=== PATIENT | female | born 1960 | race Caucasian/White ===

== ENCOUNTER 2018-08-04 13:20 | Outpatient (CLI) | payer MEDICARE ==
--- NOTE | 2018-08-04 14:43 | CT ---
[facility] lumbar spine noncontrast: 07/27/2018 HISTORY: 58-year-old female with lumbar radiculopathy, and fracture of unspecified parts of lumbosacral spine and pelvis, initially, for closed fracture. COMPARISON: None FINDINGS: There are 5 lumbar-type vertebrae. Vertebral body heights are maintained. There are unilateral left p edicle screws at L4, L5, and S1, with vertical interlocking ludy. There are tiny metallic markers for interbody cages at the left sides of the L4-5 and L5-S1 disc spaces. There are 3 transversely oriente d screws across the left SI joint. The left L5 inferior articular facet is surgically absent. The lef t L4 inferior articular facet is at least partially absent. No definitive evidence of hardware loosen ing. T12-L1: Small far lateral focal disc herniation into lateral prevertebral space. No central or neural foraminal stenosis. No high-grade disc space narrowing. L1-2: Mild diffuse disc bulge. Mild central spinal canal stenosis. Mild bilateral neural foraminal st enosis. No high-grade disc space narrowing. L2-3: Disc spaces maintained. Mild disc bulge. Mild ligamentum flavum thickening. No high-grade facet DJD. Mild bilateral neural foraminal stenosis. Mild to moderate central spinal canal stenosis. L3-4: No high-grade disc space narrowing. Diffuse disc bulge. Moderate ligamentum flavum thickening. Left facet vacuum joint phenomenon, but otherwise no high-grade facet DJD. Mild to moderate right cami ral foraminal stenosis. Moderate left neural foraminal stenosis due to left lateral and far lateral a symmetric portion of disc bulge.. Moderate central spinal canal stenosis. L4-5: Minimal grade 1 anterolisthesis of L4 on L5. Diffuse disc bulge. Moderate right neural foramina l stenosis. Mild left neural foraminal stenosis. Mild to moderate disc space narrowing. No bony bridg es across the disc space between the endplates. L5-S1: Left hemilaminotomy along with the facetectomy. Diffuse disc bulge. Moderate right neural fora yohana stenosis. No left neural foraminal stenosis. Mild central stenosis. Moderate disc space narrowi ng. Vacuum disc phenomenon. No bony bridges across the disc space between the endplates. IMPRESSION: 1.) Status post unilateral left pedicle screw placement and interbody cage placement at L4-L5-S1. 2) moderate central spinal canal stenosis at L4-5 and mild to moderate central spinal canal stenosis at L3-4. 3) neural foraminal stenosis at several levels. 4) status post arthrodesis procedure of left sacroiliac joint with screws.
--- NOTE | 2018-08-04 15:13 | CT ---
CT PELVIS WITHOUT CONTRAST: Date: 08/04/18 HISTORY: Pelvic and lumbar fracture. COMPARISON: None. FINDINGS: Visualized alimentary canal and pelvic structures are grossly unremarkable. Uterus is surgically abse nt. Unremarkable urinary bladder. Please refer to separate lumbar spine CT report for further details. There is evidence of unilateral left-sided transpedicular screw at L4, L5, and S1. There is associated disc prosthesis at L4-L5 and L 5-S1. With regards to the visualized transpedicular screws, no obvious perihardware lucency at L4 and L5. However, there does appear to be mild perihardware lucency involving the screw at S1. Limited evaluation of the contents of the central spinal canal and neural foramina. Visualized bony pelvis appears to be intact. There are three screws traversing the left sacroiliac tawana int. No evidence of perihardware lucency. The left SI joint is still patent. Both obturator rings and visualized femoral heads are unremarkable. Sacral ala are preserved. IMPRESSION: 1. Fusion changes as described above. There is mild perihardware lucency involving the left S1 trans pedicular screw, correlate for loosening. 2. No acute fractures. POS: [facility]
--- NOTE | 2018-08-04 15:40 | MRI ---
LUMBAR SPINE MRI WITHOUT AND WITH CONTRAST: Date: 08/04/18 HISTORY: Previous fracture. Fusion. Pain. Recent previous surgery. FINDINGS: There is appropriate T1 marrow signal intensity of the lumbar vertebra. Lumbar spine vertebral body h eight is maintained. No fracture. Limited evaluation of the bone marrow signal intensity at L4, L5, a nd S1 due to left-sided transpedicular screw, as well as fusion hardware along the left SI joint. The re is no abnormal enhancement on the postcontrast images, with respect to the vertebral bodies. Addit ionally, there is no abnormal enhancement with regards to the contents of the central spinal canal an d neural foramina. There is a T2 hyperintense lesion with evidence of enhancement along the tip of the right hepatic lob e measuring approximately 1.1 cm. Incomplete characterization. Conus medullaris terminates at the upper aspect of L1. T12-L1: No significant central canal stenosis or neural foraminal narrowing. L1-L2: No significant central canal stenosis or neural foraminal narrowing. L2-L3: No significant central canal stenosis or neural foraminal narrowing. L3-L4: Minimal loss of disc space height. Left and right paracentral disc bulges, along with minimal ligamentum flavum thickening and facet hypertrophy result in mild central canal stenosis. Neural for deena patent. L4-L5: There is a disc prosthesis. Limited evaluation due to metallic susceptibility artifact. There appears to be overall mild central canal stenosis. Right neural foramen is patent. Mild left foramin al narrowing. L5-S1: There is a disc prosthesis. There is no significant central canal stenosis. Right neural fora men patent. Limited evaluation of the left neural foramen due to metallic susceptibility artifact. IMPRESSION: 1. No evidence of significant central canal stenosis or significant foraminal narrowing. 2. 1.0 cm enhancing focus along the right hepatic lobe, incompletely evaluated. POS: [facility]
== END 2018-08-04 13:21 | disposition home or self-care (01) ==
LOC: TBSIIMAG 13:20
PROVIDERS: ATTEND Neurological Surgery
DX: S32.9XXA Fracture of unspecified parts of lumbosacral spine and pelvis, initial encounter for closed fracture (principal); M54.16 Radiculopathy, lumbar region; M48.061 Spinal stenosis, lumbar region without neurogenic claudication; M48.07 Spinal stenosis, lumbosacral region; Z98.1 Arthrodesis status
CPT/HCPCS: 72131; 72158; 72192